=== PATIENT | female | born 1950 | race Caucasian/White ===

== ENCOUNTER → 2016-10-11 | Outpatient (CLI) | payer MEDICARE, OTHER ==
--- NOTE | 2016-10-11 14:07 | RAD ---
Bone densitometry scan, 10/11/2016: History: Ovarian failure, osteoporosis screening The lumbar spine and right hip were examined utilizing a DEXA technique. The bone mineral density in the lumbar spine as measured from the L1-L4 levels is 1.79 g/sq cm. This yields a T score 5.0 which is in the normal range. Hypertrophic spurring is presumably trimming to this high measurement. The total T score at the right hip is 0.8. This is in the normal range. IMPRESSION: Normal bone mineral density measurements.
== END | disposition home or self-care (01) ==
LOC: MAMMO 12:37
PROVIDERS: ATTEND Nurse Practitioner Family
DX: Z12.31 Encounter for screening mammogram for malignant neoplasm of breast (principal); Z13.820 Encounter for screening for osteoporosis; I10 Essential (primary) hypertension; M81.0 Age-related osteoporosis without current pathological fracture
CPT/HCPCS: 77063; 77080; G0202; 77067

== ENCOUNTER → 2021-06-15 | Outpatient (CLI) | payer MEDICARE, OTHER ==
--- NOTE | 2021-06-15 15:24 | RAD ---
EXAM: DUAL ENERGY X-RAY ABSORPTIOMETRY (DEXA). HISTORY: Postmenopausal screening. FINDINGS: The lowest measured T-score is 0.9 in the right hip, based on a bone mineral density of 1.0 61 g/cm^2. Refer to the worksheets for full detail. There has been a 0.8 percent increase in density of the right hip and 0.0 percent change in density o f the lumbar spine compared to a study performed 10/11/2016. IMPRESSION: 1. Normal. Bone mineral density yields a T-score of -1.0 or greater. Fracture risk is low. 2. FRAX report: Not calculated. METHODOLOGY: Dual energy x-ray absorptiometry was performed to measure bone mineral density. The foll owing analysis is based on the 2019 Official Positions of the International Society for Clinical Dens itometry: Measurements of the hips and the average of L1-L4 are preferred. When the spine and/or hip cannot be feasibly measured or interpreted, or in the setting of hyperparathyroidism, distal radial bone minera l density may be measured. The lumbar spine T-score is based on the average bone mineral density of L1-L4. In the setting of art ifact or anatomic abnormality, some lumbar levels may be excluded, and the remaining levels used for calculation. A single lumbar level is not used for diagnosis, and if only a single level is available for assessment, another anatomic site will be used to assign a diagnosis. The hip T-score is based on the bone mineral density measurement of the femoral neck or total proxima l femur of either side, whichever is lowest. Bilateral mean values are not used for diagnosis. The forearm T-score is derived from 33% of the distal radius of the nondominant forearm. Electronically signed by: Khushbu Damon MD (06/15/2021 3:22 PM) [id number]
--- NOTE | 2021-06-15 15:43 | RAD ---
Bilateral digital screening mammogram 06/15/2021 CLINICAL HISTORY: Screening study. Digital MLO and CC mammograms of both breasts were obtained. Comparison study is dated 10/11/2016. The breast parenchyma is composed of scattered fibroglandular densities which could obscure a lesion on mammography (breast density B). Benign-appearing calcifications are seen within both breasts. No s piculated mass is seen. No malignant appearing calcification or area of architectural distortion is n oted. Impression: BI-RADS Category 1: Negative. There is no mammographic evidence of malignancy. Routine y early screening mammography is recommended for follow-up. This examination was reviewed with the aid of computer-aided detection. A mammogram does not have 100% sensitivity and therefore a negative imaging study should not delay fu rther work up of a suspicious abnormality. Patient information is entered into the reminder system with a target due date for the next screening mammogram of 10/11/2016. "Our facility is accredited by the [employer] Mammography Program." Electronically signed by: Alberto Rae MD (06/15/2021 3:41 PM) [email or web address]
== END ==
LOC: MAMMO 14:12
PROVIDERS: ATTEND Family Medicine
DX: Z12.31 Encounter for screening mammogram for malignant neoplasm of breast (principal); Z00.00 Encounter for general adult medical examination without abnormal findings; Z78.0 Asymptomatic menopausal state
CPT/HCPCS: 77067; 77080